=== PATIENT | female | born 1975 | race African-American/Black ===

== ENCOUNTER 2019-10-25 23:30 | Emergency (ER) | payer SELFPAY ==
[~2019-10-25] VITALS: Ht 170.2 cm; Wt 81.6 kg
[2019-10-25 23:39] VITALS: Ht 170.2 cm; Wt 81.6 kg
[2019-10-26] MEDS ORDERED: AUGMENTIN 875-11 TAB PO (00:20)
[2019-10-26 00:48] LABS: BASOPHILS 0.2 % (0-2); EOSINOPHILS 1.7 % (0-7); HEMATOCRIT 35.5 % (36.0-48.0); HEMOGLOBIN 11.8 g/dL (12-16); IMMATURE GRANULOCYTES 0.1 % (0-5); LYMPHOCYTES 17.7 % (15-50); MCH 31.6 pg (26.0-34.0); MCHC 33.2 g/dL (31.0-37.0); MCV 94.9 fL (80.0-100.0); MEAN PLATELET VOLUME 11.6 fL (7.4-10.4); MONOCYTES 8.6 % (2-11); NEUTROPHILS 71.7 % (40-80); PLATELET COUNT 201 10x3/uL (130-400); RBC 3.74 10x6/uL (4.00-5.40); WBC 8.7 10x3/uL (4.8-10.8)
[2019-10-26 01:07] LABS: ALBUMIN 3.6 g/dL (3.4-5.0); ALKALINE PHOSPHATASE 56 U/L (30-120); ALT (SGPT) 14 U/L (10-68); BILIRUBIN - TOTAL 0.41 mg/dL (0.2-1.3); CALC OSMOLALITY 262 mosm/kg (275-300); CALCIUM 8.6 mg/dL (8.5-10.1); CARBON DIOXIDE 22.3 mmol/L (21.0-32.0); CHLORIDE - SERUM 102 mmol/L (98-107); CREATININE - SERUM 0.7 mg/dL (0.6-1.3); GLUCOSE 103 mg/dL (74-106); POTASSIUM - SERUM 3.7 mmol/L (3.5-5.1); PROTEIN - SERUM 7.5 g/dL (6.4-8.2); SODIUM 133 mmol/L (136-145); UREA NITROGEN 5 mg/dL (7-18); eGFR NON AFRICAN AMERICAN > 90 mL/min (90-120)
[2019-10-26 01:38] VITALS: BP 132/88
== END 2019-10-26 01:49 | disposition home or self-care (01) ==
LOC: D.ER 23:30
PROVIDERS: Emergency Medicine
DX: J32.9 Chronic sinusitis, unspecified (principal); R05 Cough; R06.02 Shortness of breath; Z20.828 Contact with and (suspected) exposure to other viral communicable diseases; R68.89 Other general symptoms and signs